=== PATIENT | female | born 1995 | race Caucasian/White ===

== ENCOUNTER 2020-02-18 00:51 | Emergency (ER) | payer MEDICAID, SELFPAY ==
[2020-02-18 01:07] VITALS: BP 125/70; PULSE 76; RESP 16; TEMP 36.9; O2SAT 98; BMI 39.4
--- NOTE | 2020-02-18 02:10 | CTR_ITS ---
PROCEDURE INFORMATION: Exam: CT Abdomen And Pelvis With Contrast Exam date and time: 02/18/2020 3:14 AM Age: 25 years old Clinical indication: Abdominal pain; Generalized; Additional info: Right abdominal pain TECHNIQUE: Imaging protocol: Computed tomography of the abdomen and pelvis with intravenous contrast. Radiation optimization: All CT scans at this facility use at least one of these dose optimization techniques: automated exposure control; mA and/or kV adjustment per patient size (includes targeted exams where dose is matched to clinical indication); or iterative reconstruction. Contrast material: OMNI 300; Contrast volume: 95 ml; Contrast route: INTRAVENOUS (IV); COMPARISON: No relevant prior studies available. RADIATION DOSE METRICS: Total DLP (mGy-cm): 1569.7 FINDINGS: Liver: Normal. No mass. Gallbladder and bile ducts: Normal. No calcified stones. No ductal dilation. Pancreas: Normal. No ductal dilation. Spleen: Normal. No splenomegaly. Adrenals: Normal. No mass. Kidneys and ureters: Normal. No hydronephrosis. Stomach and bowel: Unremarkable. No obstruction. No mucosal thickening. Appendix: The appendix is visualized and is normal in configuration. Intraperitoneal space: Trace fluid is seen in the cul-de-sac commensurate with the patient's age and menstrual status. Vasculature: Unremarkable. No abdominal aortic aneurysm. Lymph nodes: There are small mesenteric lymph nodes seen that are below CT criteria for lymphadenopathy. Mild mesenteric lymphadenitis cannot be entirely excluded. Urinary bladder: Unremarkable as visualized. Reproductive: Unremarkable as visualized. Bones/joints: Unremarkable. No acute fracture. Soft tissues: Unremarkable. CT/CT abdomen pelvis w con* [id number] IMPRESSION: 1. Normal appendix 2. Small mesenteric lymph nodes are seen that are below CT criteria for lymphadenopathy. Mild mesenteric lymphadenitis cannot be entirely excluded. 3. Trace fluid seen in the cul-de-sac commensurate the patient's age and menstrual status. Radiation Dose CTDIVOL = (mGy): DLP = 1569.7 (mGy-cm)
[2020-02-18 02:16] VITALS: BP 134/51; PULSE 66; RESP 16; O2SAT 98
[2020-02-18] MEDS: sodium chloride 0.9% 1,000 ML 999 ML IV (02:36)
[2020-02-18 02:47] LABS: Basophils # 0.1 10^3/uL (0.0-0.1); Basophils % 0.9 %; Eosinophils # 0.5 10^3/uL (0.0-0.8); Eosinophils % 5.5 %; Hematocrit 41.7 % (37.0-47.0); Hemoglobin 12.7 g/dL (11.5-15.3); Lymphocytes # 3.4 10^3/uL (0.8-4.8); Lymphocytes % 34.3 %; Mean Corpuscular HGB Conc 30.5 g/dL (30.0-36.0); Mean Corpuscular Volume 88.5 fL (81-99); Mean Platelet Volume 9.5 fL (7.4-10.4); Monocytes % 9.6 %; Neutrophils # 4.89 10^3/uL (1.8-7.7); Neutrophils % 49.4 %; Nucleated Red Blood Cells % 0 %; Platelet Count 456 10^3/cmm (130-400); Red Blood Count 4.71 10^6/uL (4.1-5.3); White Blood Count 9.9 10^3/uL (4.0-10.0)
[2020-02-18 02:49] LABS: Add Urine Microscopic? YES; Bilirubin Urine Neg (Negative); Blood Urine Neg (Negative); Glucose Urine UA Norm (Normal); Ketones Urine Negative (Negative); Leukocyte Esterase Urine Negative (Negative); Nitrate Urine Positive (Negative); Protein Urine Neg (Negative); Specific Gravity, Urine 1.015 (1.005-1.030); Urine Appearance SL Hazy (CLEAR); Urine Color Yellow (Yellow); Urobilinogen Urine Norm (Negative); pH Urine 7 (5-7)
[2020-02-18 02:54] LABS: HCG, Serum Qual Negative (Negative)
[2020-02-18 03:01] LABS: Add Urine Culture? Yes; Amorphous Sediment Urine 2+ /hpf; Bacteria Urine 3+ /hpf; RBC Urine 0-4 /hpf (0-2); Squamous Epithelial Cell Urine 0-4 /hpf (0-5); WBC Urine 0-4 /hpf (0-5)
[2020-02-18 03:10] LABS: Alanine Aminotransferase 19 U/L (0-33); Albumin Level 4.7 g/dL (3.5-5.2); Alkaline Phosphatase 98 IU/L (35-105); Anion Gap 12.8 (5-19); Aspartate Amino Transferase 16 U/L (0-32); Blood Urea Nitrogen 19 mg/dL (6-20); C Reactive Protein 6.7 mg/L (0.0-4.9); Calcium 9.8 mg/dL (8.5-10.5); Carbon Dioxide 26 mmol/L (22-29); Chloride 101 mmol/L (98-107); Globulin 2.9 g/dL (1.3-4.6); Glomerular Filtration Rate 121.8 mL/min (90-130); Glucose 91 mg/dL (65-115); Lipase 25 U/L (13-60); Osmolality Calculated 284 mOsm/kg (285-295); Potassium 3.8 mmol/L (3.5-5.1); Sodium 136 mmol/L (136-145); Total Bilirubin 0.2 mg/dL (0.15-1.2); Total Protein 7.6 g/dL (6.6-8.7)
[2020-02-18] MEDS: iohexol 300 mg/mL 100 mL Btl IV (03:15)
[2020-02-18] MEDS: ondansetron 2 mg/ML SDV 2 mL 4 MG IVP (03:41)
[2020-02-18 03:42] VITALS: RESP 16; O2SAT 98
[2020-02-18] MEDS: morphine 4 mg/mL SDV 1 mL IVP (03:42)
[2020-02-18 03:43] VITALS: BP 114/70; PULSE 80; RESP 16; O2SAT 100
--- NOTE | 2020-02-18 04:03 | ED_ITS ---
HPI - Abdominal Pain General: Chief Complaint: Abdominal Pain Stated Complaint: r side abd pain Time Seen by Provider: 02/18/20 02:08 History of Present Illness: HPI narrative: 25-year-old female with right greater than left-sided lower abdominal pain and back pain for the past couple of days. She is vomited a couple of times. She has had no fever. She has had some dysuria symptoms. She had a tubal ligation a few months ago. No other belly surgeries. No blood in the stool or vomitus. No diarrhea. MD elicited complaint: abdominal pain Pertinent past history: past UTI Onset (ago): day(s) Pain Consistency: constant Location: RLQ and Other Severity: moderate Radiation: back Migration to: no migration Associated Symptoms: Reports chills, nausea and vomiting; Denies dysuria, fever(s), hematochezia, hematuria and melena Related Data: Date of Last Menstrual Period: 01/31/20 Review of Systems Const: Reports: chills; Denies: fever(s) Eyes: Denies: change in vision ENMT: Denies: odynophagia, post nasal drip or sinus pain Card: Denies: chest pain, palpitations or irregular heart rhythm Resp: Denies: dyspnea, productive cough, non-productive cough or wheezing GI: Reports: abdominal pain, nausea and vomiting; Denies: hematochezia or melena : Denies: dysuria or hematuria Musc: Denies: neck pain or back pain Skin/Breast: Denies: rash or erythema Neuro: Denies: headache(s), dizziness or vertigo Psych: Denies: anxiety [facility] ED Female Reproductive History: Date of last menstrual period: 01/31/20 : 2 Physical Exam Const: GENERAL APPEARANCE: well developed ORIENTATION/CONSCIOUSNESS: Yes oriented to person, Yes oriented to place and Yes oriented to time HENMT: COMMON NORMALS: normocephalic, external ears normal and Normal external nose present HEAD & SCALP: normocephalic; no scalp tenderness FACE & SINUS: normal facial exam NOSE: Normal external nose present and No nasal discharge present EXTERNAL EAR: Yes external ears normal Eye: COMMON NORMALS: Equal, round and reactive pupils present, EOMs intact bilaterally and conjunctivae normal EYELID: eyelids normal CONJUNCTIVA: Yes conjunctivae normal PUPIL: Yes Equal, round and reactive pupils present Neck/C-Spine: GENERAL: No tracheal deviation Chest: COMMONS NORMALS: normal inspection of the chest CHEST: No tenderness Resp: COMMON NORMALS: clear to auscultation bilaterally EFFORT & INSPECTION: No tachypneic, No respiratory distress, No retractions, No uses accessory muscles and No tracheal deviation AUSCULTATION: clear to auscultation bilaterally, no rhonchi, no wheezes and lung sounds not diminished Cardio: COMMON NORMALS: regular rate and regular rhythm RATE: regular rate RHYTHM: regular rhythm HEART SOUNDS: no murmurs PERIPHERAL PULSES: radial pulses present GI: INSPECTION: No abdominal distension AUSCULTATION: No Hyperactive bowel sounds present and No Hypoactive bowel sounds present PALPATION: Yes Tenderness to palpation present (GI), Yes Guarding due to palpation present (GI) in the RLQ and No Rigid due to palpation PERCUSSION: no dullness to percussion and no tympanic to percussion : COMMON NORMALS: Yes no CVA tenderness BLADDER/KIDNEY EXAM: Yes no CVA tenderness Back/Pelvis: COMMON NORMALS: no CVA tenderness Neuro: SENSORIUM/ORIENTATION: Yes oriented to person, Yes oriented to place and Yes oriented to time Psych: COMMON NORMALS: mental status grossly normal Skin: COMMON NORMALS: no rashes or lesions noted GENERAL SKIN EXAM: no rashes or lesions noted Course Vital Signs: Vital signs: Vital Signs Temperature 98.4 F 02/18/20 01:07 Pulse Rate 59 L 02/18/20 04:31 Respiratory Rate 15 02/18/20 04:31 Blood Pressure 109/53 02/18/20 04:31 Pulse Oximetry 98 02/18/20 04:31 MDM - Abdominal Pain MDM Narrative: Medical decision making narrative: Patient is given pain medication, nausea medication, and fluid. Platelet count minimally elevated. White blood cell count is 9.9. Electrolytes are normal. CT shows mesenteric adenitis. Urinalysis shows bacteria without definite infection. She will be treated as a urinary tract infection, as she does have increased frequency and some dysuria. Lab Data: Labs: Lab Results 02/18/20 02/18/20 02/18/20 Range/Units 02:22 02:22 02:22 WBC 9.9 (4.0-10.0) 10^3/ uL RBC 4.71 (4.1-5.3) 10^6/u L Hgb 12.7 (11.5-15.3) g/dL Hct 41.7 (37.0-47.0) % MCV 88.5 (81-99) fL MCH 27.0 L (28.0-34.0) pg MCHC 30.5 (30.0-36.0) g/dL RDW 15.0 (12.1-15.1) % Plt Count 456 H (130-400) 10^3/c mm MPV 9.5 (7.4-10.4) fL Neut % (Auto) 49.4 % Lymph % (Auto) 34.3 % Whitman % (Auto) 9.6 % Eos % (Auto) 5.5 % Baso % (Auto) 0.9 % Neut # (Auto) 4.89 (1.8-7.7) 10^3/u L Lymph # (Auto) 3.4 (0.8-4.8) 10^3/u L Whitman # (Auto) 1.0 H (0.2-0.9) 10^3/u L Eos # (Auto) 0.5 (0.0-0.8) 10^3/u L Baso # (Auto) 0.1 (0.0-0.1) 10^3/u L Nucleated RBC % (a uto) 0 % Nucleated RBCs # 0.0 /100WBC Sodium 136 (136-145) mmol/L Potassium 3.8 (3.5-5.1) mmol/L Chloride 101 (98-107) mmol/L Carbon Dioxide 26 (22-29) mmol/L Anion Gap 12.8 (5-19) BUN 19 (6-20) mg/dL Creatinine 0.6 (0.5-0.9) mg/dL GFR Calculation 121.8 (90-130) mL/min Glucose 91 (65-115) mg/dL Calculated Osmolal ity 284 L (285-295) mOsm/k g Calcium 9.8 (8.5-10.5) mg/dL Total Bilirubin 0.2 (0.15-1.2) mg/dL AST 16 (0-32) U/L ALT 19 (0-33) U/L Alkaline Phosphata se 98 (35-105) IU/L C-Reactive Protein 6.7 H (0.0-4.9) mg/L Total Protein 7.6 (6.6-8.7) g/dL Albumin 4.7 (3.5-5.2) g/dL Globulin 2.9 (1.3-4.6) g/dL Lipase 25 (13-60) U/L HCG, Qual Negative (Negative) Urine Color (Yellow) Urine Appearance (CLEAR) Urine pH (5-7) Ur Specific Gravit y (1.005-1.030) Urine Protein (Negative) Urine Glucose (UA) (Normal) Urine Ketones (Negative) Urine Blood (Negative) Urine Nitrate (Negative) Urine Bilirubin (Negative) Urine Urobilinogen (Negative) mg/dL Ur Leukocyte Keysha ase (Negative) Urine RBC (0-2) /hpf Urine WBC (0-5) /hpf Ur Squamous Epith Cells (0-5) /hpf Amorphous Sediment /hpf Urine Bacteria (NONE) /hpf 1018/20 Range/Units 02:22 WBC (4.0-10.0) 10^3/ uL RBC (4.1-5.3) 10^6/u L Hgb (11.5-15.3) g/dL Hct (37.0-47.0) % MCV (81-99) fL MCH (28.0-34.0) pg MCHC (30.0-36.0) g/dL RDW (12.1-15.1) % Plt Count (130-400) 10^3/c mm MPV (7.4-10.4) fL Neut % (Auto) % Lymph % (Auto) % Whitman % (Auto) % Eos % (Auto) % Baso % (Auto) % Neut # (Auto) (1.8-7.7) 10^3/u L Lymph # (Auto) (0.8-4.8) 10^3/u L Whitman # (Auto) (0.2-0.9) 10^3/u L Eos # (Auto) (0.0-0.8) 10^3/u L Baso # (Auto) (0.0-0.1) 10^3/u L Nucleated RBC % (a uto) % Nucleated RBCs # /100WBC Sodium (136-145) mmol/L Potassium (3.5-5.1) mmol/L Chloride (98-107) mmol/L Carbon Dioxide (22-29) mmol/L Anion Gap (5-19) BUN (6-20) mg/dL Creatinine (0.5-0.9) mg/dL GFR Calculation (90-130) mL/min Glucose (65-115) mg/dL Calculated Osmolal ity (285-295) mOsm/k g Calcium (8.5-10.5) mg/dL Total Bilirubin (0.15-1.2) mg/dL AST (0-32) U/L ALT (0-33) U/L Alkaline Phosphata se (35-105) IU/L C-Reactive Protein (0.0-4.9) mg/L Total Protein (6.6-8.7) g/dL Albumin (3.5-5.2) g/dL Globulin (1.3-4.6) g/dL Lipase (13-60) U/L HCG, Qual (Negative) Urine Color Yellow (Yellow) Urine Appearance Sl hazy (CLEAR) Urine pH 7 (5-7) Ur Specific Gravit y 1.015 (1.005-1.030) Urine Protein Neg (Negative) Urine Glucose (UA) Norm (Normal) Urine Ketones Negative (Negative) Urine Blood Neg (Negative) Urine Nitrate Positive H (Negative) Urine Bilirubin Neg (Negative) Urine Urobilinogen Norm (Negative) mg/dL Ur Leukocyte Keysha ase Negative (Negative) Urine RBC 0-4 H (0-2) /hpf Urine WBC 0-4 H (0-5) /hpf Ur Squamous Epith Cells 0-4 H (0-5) /hpf Amorphous Sediment 2+ /hpf Urine Bacteria 3+ H (NONE) /hpf Discharge Plan Discharge Patient Disposition: Home Clinical Impression: Acute mesenteric lymphadenitis Urinary tract infection Qualifiers: Urinary tract infection type: acute cystitis Hematuria presence: without hematuria Qualified Code(s): N30.00 - Acute cystitis without hematuria Condition: Stable Prescriptions: New [place] 5-325 mg tablet 1 tab PO Q6H PRN (Reason: pain) Qty: 10 RF: 0 Zofran 4 mg tablet 4 mg PO Q6H PRN (Reason: nausea and vomiting) Qty: 10 RF: 0 levofloxacin 500 mg tablet 500 mg PO Q24H 7 Days Qty: 7 RF: 0 Discharge Orders: Discharge Order (Routine); Ordered 02/18/20 Ordered By: Doc Jain Referrals: Zuleyma Scott MD [Primary Care Provider] - 4-7 days Discharge Diet: Advance as tolerated and Clear Liquid Discharge Activity: Increase activity as tolerated Patient Instructions: Urinary Tract Infection in Women (ED), Mesenteric Adenitis (ED) Activity Restrictions/Additional Instructions: Return for fever greater than 100 despite 2-3 doses of antibiotics, vomiting liquids or medications, worsening pain despite treatment, other concerning symptoms. Discharge Date/Time: 02/18/20 04:35 Coding Level of Care Code ED [employer] Specialist for Zunilda Scales
[2020-02-18 04:17] VITALS: BP 118/67; PULSE 78; RESP 17; O2SAT 100
[2020-02-18] MEDS: levoFLOXacin 500 mg Tablet PO (04:17)
[2020-02-18 04:31] VITALS: BP 109/53; PULSE 59; RESP 15; O2SAT 98
== END 2020-02-18 04:35 | disposition home or self-care (01) ==
PROVIDERS: Emergency Provider Emergency Medicine; PCP Pediatrics
DX: N30.00 Acute cystitis without hematuria (principal); I88.0 Nonspecific mesenteric lymphadenitis
CPT/HCPCS: 12345; 74177; 80053; 81001; 83690; 84703; 85025; 86140; 87077; 87086; 87186; 96361; 96374; 96375; 99283; J2270; J2405; J7030; Q9967

== ENCOUNTER 2020-03-20 21:49 | Emergency (ER) | payer MEDICAID, SELFPAY ==
[2020-03-20 21:51] VITALS: BP 120/81; PULSE 81; RESP 17; TEMP 36.6; O2SAT 97; BMI 40.8
--- NOTE | 2020-03-20 21:58 | XR_ITS ---
WS: [id number] Exam: XR foot LT min 3V* [id number] Date/Time of Exam: 03/20/2020 10:05 PM Reason For Exam: Injury/pain Findings: The foot was examined in multiple views and reveals no fractures or displacements of bone. No bony a nomalies are noted. The bony elements are in adequate alignment. The joint spaces are smooth and eq uidistant. XR/XR foot LT min 3V* [id number] IMPRESSION: Negative left foot.
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
[2020-03-20] MEDS: lidocaine 2% viscous 15 mL UDC 5 ML TOPICAL (22:38)
[2020-03-20] MEDS: HYDROcodone-acetaminophen 5-325 mg Tablet 1 TAB PO (22:52)
--- NOTE | 2020-03-21 09:59 | DCPLANNER ---
[employer] had message to schedule a follow up appointment for patient with ortho. [employer] called the ortho clinic, spoke Hannah, gave clinic patients information. [employer] was told that patients information would be printed and reviewed. Clinic will call patient with appointment information.
--- NOTE | 2020-03-22 10:07 | DCPLANNER ---
Patient has a follow up appointment scheduled for Wednesday, March 22, 2020 at 3:[address] Schaffer. Clinic will call patient with appointment information.
--- NOTE | 2020-03-22 10:09 | DCPLANNER ---
Patient has a follow up appointment scheduled for Wednesday, March 22, 2020 at 3:[address] Schaffer. Clinic will call patient with appointment information.
--- NOTE | 2020-04-03 13:27 | DCPLANNER ---
Patient had a follow up appointment scheduled for 03.22.20 with ortho - patient did attend appointment.
== END 2020-03-20 23:03 | disposition home or self-care (01) ==
PROVIDERS: Emergency Provider Nurse Practitioner Family; PCP Pediatrics
DX: S92.415A Nondisplaced fracture of proximal phalanx of left great toe, initial encounter for closed fracture (principal); S91.209A Unspecified open wound of unspecified toe(s) with damage to nail, initial encounter; W50.0XXA Accidental hit or strike by another person, initial encounter
CPT/HCPCS: 12345; 73630; 99281; 99283; E0114

== ENCOUNTER 2020-05-04 07:02 | Emergency (ER) | payer MEDICAID, SELFPAY ==
[2020-05-04 07:12] VITALS: BP 139/69; PULSE 86; RESP 18; TEMP 36.2; O2SAT 96; BMI 40.8
--- NOTE | 2020-05-04 07:21 | USR_ITS ---
PROCEDURE INFORMATION: Exam: US Abdomen, Limited; Right Upper Quadrant Exam date and time: 05/04/2020 7:51 AM Age: 25 years old Clinical indication: Abdominal pain; Additional info: Ruq pain TECHNIQUE: Imaging protocol: US abdomen. Real time ultrasound with image documentation. Limited exam focused on the right upper quadrant. COMPARISON: CT abdomen pelvis w con* [id number] 02/18/2020 3:10 AM FINDINGS: Liver: Normal. No masses. Gallbladder: Normal. No gallstones. There is no gallbladder wall thickening. Common bile duct: Normal. No stones. No dilation. Pancreas: Limited due to bowel gas but the visualized portions are unremarkable. Right kidney: Normal. No mass. No hydronephrosis. Aorta: There is no abdominal aortic aneurysm.. Other findings: The examination is limited due to bowel gas. US/US gall bladder [id number] IMPRESSION: Limited study due to bowel gas but no abnormalities are seen.
--- NOTE | 2020-05-04 07:21 | ED_ITS ---
HPI - Back Pain/Injury General: Chief Complaint: Back Pain/Injury Stated Complaint: R SIDE BACK PAIN Time Seen by Provider: 05/04/20 07:05 Source: patient Mode of arrival: ambulatory Limitations: no limitations History of Present Illness: HPI Narrative: 25 year old female presents to the ED with c/o rt upper back and rt upper abdominal pain - onset at 5:30 am today. Reports previous symptoms approx 1 week ago but symptoms resolved - states ate fudge bar at 1 am this morning. Reports tubal ligation approx 6 months ago - LMP 2 months ago. MD elicited complaint: back pain Pertinent past history: other (pyleonephritis) Onset (ago): hour(s) (2-3) Timing: constant Severity: moderate Similar Symptoms Previously: Yes Quality: sharp, stabbing and aching Location: right upper back (rt upper abdomen) Radiation: abdomen (rt) Exacerbating factors: deep breaths and other (lying flat) Relieving factors: supine and other (sitting up) Context: other (onset while awake) Associated symptoms: Reports abdominal pain and nausea; Deny chills, dysuria, fatigue, fever(s) or vomiting Treatments prior to arrival: other (none) Work related injury: No Review of Systems General: Reports: 10 or more systems reviewed and unremarkable except in HPI and below Const: Denies: fever(s), chills, body aches, fatigue, malaise or diaphoresis Eyes: Denies: blurry vision or eye redness ENMT: Denies: throat pain, dental pain or disequilibrium Card: Denies: chest pain, palpitations or irregular heart rhythm Resp: Denies: dyspnea, productive cough, non-productive cough, wheezing or chest congestion GI: Reports: abdominal pain and nausea; Denies: vomiting, heartburn, diarrhea or GI cramping : Denies: difficulty voiding or dysuria Musc: Denies: neck pain or back pain Skin/Breast: Denies: rash or pruritus Neuro: Denies: headache(s), weakness in extremities or behavioral changes Psych: Denies: anxiety or depression Gaetano/Lymph: Denies: easy bruising PFSH ED PFSH: Medical History (Updated 05/04/20 @ 09:28 by BLAKE Becker) No pertinent past medical history Surgical History (Updated 05/04/20 @ 07:35 by BLAKE Becker) Tubal ligation status Social History Smoking and tobacco status: never smoked Second hand smoke exposure: No Alcohol intake: current Alcohol intake frequency: holidays/special occasions only Female Reproductive History: Date of last menstrual period: 01/31/20 Physical Exam Const: COMMON NORMALS: no acute distress, patient oriented x3, healthy appearing, alert and well nourished EXAM LIMITATIONS: no altered mental stat us and no physical limitations GENERAL APPEARANCE: cooperative, well kempt and well hydrated; not comfortable, not anxious and not ill appearing NUTRITIONAL APPEARANCE: obese ORIENTATION/CONSCIOUSNESS: Yes awake, Yes oriented to person, Yes oriented to place and Yes oriented to time HENMT: COMMON NORMALS: normocephalic, atraumatic, Normal external nose present and moist oral mucous membranes HEAD & SCALP: normal to inspection, normocephalic and atraumatic FACE & SINUS: normal facial exam and face symmetric NOSE: Normal external nose present and No nasal polyps present T HROAT: posterior oropharynx normal Eye: COMMON NORMALS: Equal, round and reactive pupils present, EOMs intact bilaterally and conjunctivae normal GENERAL EYE: appearance normal, both eyes and all related structures CONJUNCTIVA: Yes conjunctivae normal PUPIL: Yes Equal, round and reactive pupils present Neck/C-Spine: COMMON NORMALS: full ROM and no lymphadenopathy GENERAL: Yes normal visual inspection and Yes trachea midline CERVICAL SPINE: Yes cervical ROM normal Lymph: LYMPHATIC: no lymphadenopathy noted Chest: COMMONS NORMALS: normal inspection of the chest and normal palpation of entire chest wall Resp: COMMON NORMALS: normal respiratory effort, No retractions, No use of accessory muscles and clear to auscultation bilaterally EFFORT & INSPECTION: Yes able to speak in complete sentences AUSCULTATION: clear to auscultation bilaterally Cardio: COMMON NORMALS: regular rate, regular rhythm, S1 normal heart sound present, S2 normal heart sound present and Peripheral pulses 2+ throughout RATE: regular rate RHYTHM: regular rhythm HEART SOUNDS: S1 normal heart sound present and S2 normal heart sound present PERIPHERAL PULSES: Peripheral pulses 2+ throughout GI: COMMON NORMALS: Normal to inspection, nondistended, normoactive bowel sounds present and Soft to palpation INSPECTION: Yes normal to inspection, No abdominal wall ecchymosis, No Anasarca, No abdominal distension, Yes central obesity and Yes striae AUSCULTATION: Yes normoactive bowel sounds PALPATION: Yes Soft to palpation and Yes Tenderness to palpation present (GI) Details: RUQ (+ Chairez's) : COMMON NORMALS: Yes no CVA tenderness BLADDER/KIDNEY EXAM: Yes no CVA tenderness Back/Pelvis: COMMON NORMALS: no CVA tenderness, thoracic and lumbar spine normal to inspection, no thoracic nor lumbar tenderness, thoraco-lumbar ROM normal and straight leg raise negative bilaterally Extremity: COMMON NORMALS: normal to inspection and capillary refill normal Neuro: COMMON NORMALS: patient oriented x3 and no focal motor deficits SENSORIUM/ORIENTATION: Yes alert, Yes oriented to person, Yes oriented to place and Yes oriented to time Psych: COMMON NORMALS: mental status grossly normal, Normal thought process present and cooperative APPEARANCE: Yes well kempt ACTIVITY/MOTOR BEHAVIOR: Yes appropriate eye contact THOUGHT PROCESS: Normal thought process present Skin: COMMON NORMALS: no rashes or lesions noted and turgor normal GENERAL SKIN EXAM: no rashes or lesions noted and turgor normal Course Vital Signs: Vital signs: Vital Signs Temperature 97.2 F L 05/04/20 07:12 Pulse Rate 76 05/04/20 10:05 Respiratory Rate 18 05/04/20 10:05 Blood Pressure 117/81 05/04/20 10:05 Pulse Oximetry 97 05/04/20 10:05 MDM - Back Pain/Injury MDM Narrative: Medical decision making narrative: Well's Criteria score - 0/0. 25-year-old female patient presents to the emergency department with acute onset of right scapular pain and right upper quadrant pain. Abdominal exam revealed right upper quadrant, positive Chairez with reproduction of pain to the right scapula. Remainder of her abdomen was tender with palpation. Right upper quadrant ultrasound gallbladder without acute abnormalities. CT scan of the abdomen with normal findings -treated with IV Tylenol, Mylanta and 25 mcg of fentanyl. Pain was improved patient states she did feel better. Serology findings without acute abnormality, white blood count 8.6 thousand, normal hemoglobin hematocrit, chemistry and lipase unremarkable, hCG negative, urinalysis without acute findings. 30 mg of IV Toradol administered here in the ED, patient was able to tolerate oral fluids without difficulty. Will be treated for gastritis, advised clear liquid diet then to advance as tolerated. Verbalized understanding. Agrees to follow-up with your primary care provider next week, advised also to return to the emergency department for worsening symptoms, verbalized understanding. Differential Diagnosis: Differential diagnosis back pain/injury: Likely sciatica, strain of lumbar region and pyelonephritis Lab Data: Labs: Lab Results 05/04/20 05/04/20 05/04/20 Range/Units 07:36 07:36 07:36 WBC 8.6 (4.0-10.0) 10^3/ uL RBC 4.77 (4.1-5.3) 10^6/u L Hgb 12.9 (11.5-15.3) g/dL Hct 41.5 (37.0-47.0) % MCV 87.0 (81-99) fL MCH 27.0 L (28.0-34.0) pg MCHC 31.1 (30.0-36.0) g/dL RDW 14.7 (12.1-15.1) % Plt Count 384 (130-400) 10^3/c mm MPV 9.2 (7.4-10.4) fL Neut % (Auto) 57.2 % Lymph % (Auto) 27.4 % [place] % (Auto) 9.2 % Eos % (Auto) 5.2 % Baso % (Auto) 0.8 % Neut # (Auto) 4.93 (1.8-7.7) 10^3/u L Lymph # (Auto) 2.4 (0.8-4.8) 10^3/u L [place] # (Auto) 0.8 (0.2-0.9) 10^3/u L Eos # (Auto) 0.5 (0.0-0.8) 10^3/u L Baso # (Auto) 0.1 (0.0-0.1) 10^3/u L Nucleated RBC % (a uto) 0 % Nucleated RBCs # 0.0 /100WBC Sodium 136 (136-145) mmol/L Potassium 4.0 (3.5-5.1) mmol/L Chloride 103 (98-107) mmol/L Carbon Dioxide 23 (22-29) mmol/L Anion Gap 14.0 (5-19) BUN 16 (6-20) mg/dL Creatinine 0.6 (0.5-0.9) mg/dL GFR Calculation 121.8 (90-130) mL/min Glucose 100 (65-115) mg/dL Calculated Osmolal ity 283 L (285-295) mOsm/k g Calcium 9.3 (8.5-10.5) mg/dL Total Bilirubin 0.2 (0.15-1.2) mg/dL AST 12 (0-32) U/L ALT 16 (0-33) U/L Alkaline Phosphata se 106 H (35-105) IU/L Total Protein 7.4 (6.6-8.7) g/dL Albumin 4.3 (3.5-5.2) g/dL Globulin 3.1 (1.3-4.6) g/dL Lipase 29 (13-60) U/L HCG, Qual Negative (Negative) Urine Color (Yellow) Urine Appearance (CLEAR) Urine pH (5-7) Ur Specific Gravit y (1.005-1.030) Urine Protein (Negative) Urine Glucose (UA) (Normal) Urine Ketones (Negative) Urine Blood (Negative) Urine Nitrate (Negative) Urine Bilirubin (Negative) Urine Urobilinogen (Negative) mg/dL Ur Leukocyte Keysha ase (Negative) 05/04/20 Range/Units 07:50 WBC (4.0-10.0) 10^3/ uL RBC (4.1-5.3) 10^6/u L Hgb (11.5-15.3) g/dL Hct (37.0-47.0) % MCV (81-99) fL MCH (28.0-34.0) pg MCHC (30.0-36.0) g/dL RDW (12.1-15.1) % Plt Count (130-400) 10^3/c mm MPV (7.4-10.4) fL Neut % (Auto) % Lymph % (Auto) % [place] % (Auto) % Eos % (Auto) % Baso % (Auto) % Neut # (Auto) (1.8-7.7) 10^3/u L Lymph # (Auto) (0.8-4.8) 10^3/u L [place] # (Auto) (0.2-0.9) 10^3/u L Eos # (Auto) (0.0-0.8) 10^3/u L Baso # (Auto) (0.0-0.1) 10^3/u L Nucleated RBC % (a uto) % Nucleated RBCs # /100WBC Sodium (136-145) mmol/L Potassium (3.5-5.1) mmol/L Chloride (98-107) mmol/L Carbon Dioxide (22-29) mmol/L Anion Gap (5-19) BUN (6-20) mg/dL Creatinine (0.5-0.9) mg/dL GFR Calculation (90-130) mL/min Glucose (65-115) mg/dL Calculated Osmolal ity (285-295) mOsm/k g Calcium (8.5-10.5) mg/dL Total Bilirubin (0.15-1.2) mg/dL AST (0-32) U/L ALT (0-33) U/L Alkaline Phosphata se (35-105) IU/L Total Protein (6.6-8.7) g/dL Albumin (3.5-5.2) g/dL Globulin (1.3-4.6) g/dL Lipase (13-60) U/L HCG, Qual (Negative) Urine Color Yellow (Yellow) Urine Appearance Clear (CLEAR) Urine pH 5 (5-7) Ur Specific Gravit y 1.020 (1.005-1.030) Urine Protein Neg (Negative) Urine Glucose (UA) Norm (Normal) Urine Ketones Negative (Negative) Urine Blood Neg (Negative) Urine Nitrate Negative (Negative) Urine Bilirubin Neg (Negative) Urine Urobilinogen Norm (Negative) mg/dL Ur Leukocyte Keysha ase Negative (Negative) Imaging Data^: CT Abd/Pel: Radiologist's impression: [address] [address] [address] Scan Report Signed Patient: Ivonne Colindres Unit #: [id number] : 1995 Age/Sex: 25 / F ADM Date: 05/04/20 Loc: ER Room/Bed: Attending Dr: Ordering Provider/Ordering MD: Mervat Chavez Date of Service: 05/04/20 Procedure(s): CT abdomen pelvis w con* [id number] Accession Number(s): [id number] Report Number: [id number] PROCEDURE INFORMATION: Exam: CT Abdomen And Pelvis With Contrast Exam date and time: 05/04/2020 8:32 AM Age: 25 years old Clinical indication: Abdominal pain TECHNIQUE: Imaging protocol: Computed tomography of the abdomen and pelvis with intravenous contrast. Radiation optimization: All CT scans at this facility use at least one of these dose optimization techniques: automated exposure control; mA and/or kV adjustment per patient size (includes targeted exams where dose is matched to clinical indication); or iterative reconstruction. Contrast material: OMNI 300; Contrast volume: 95 ml; Contrast route: INTRAVENOUS (IV); COMPARISON: CT abdomen pelvis w con* [id number] 02/18/2020 3:10 AM RADIATION DOSE METRICS: Total DLP (mGy-cm): 1674.15 FINDINGS: Liver: Normal. No mass. Gallbladder and bile ducts: Normal. No calcified stones. No ductal dilation. Pancreas: Normal. No ductal dilation. Spleen: Normal. No splenomegaly. Adrenal glands: Normal. No mass. Kidneys and ureters: Normal. No hydronephrosis. Stomach and bowel: Unremarkable. No obstruction. No mucosal thickening. Appendix: No evidence of appendicitis. Intraperitoneal space: There is a small amount of nonspecific free fluid in the pelvic cul-de-sac. Vasculature: Unremarkable. No abdominal aortic aneurysm. Lymph nodes: Unremarkable. No enlarged lymph nodes. Urinary bladder: Unremarkable as visualized. Reproductive: Unremarkable as visualized. Bones/joints: Unremarkable. No acute fracture. Soft tissues: Small fat containing umbilical hernia. CT/CT abdomen pelvis w con* [id number] IMPRESSION: No significant abnormalities are seen in the abdomen and pelvis. Radiation Dose CTDIVOL = (mGy): DLP = 1674.15 (mGy-cm) Dictated By: Yasmany Arndt Signed By: Yasmany Arndt Signed Date/Time: 05/04/20905 DD/ 3 Discharge Plan Discharge Patient Disposition: Home Clinical Impression: Gastritis Qualifiers: Gastritis type: unspecified gastritis Chronicity: acute Gastritis bleeding: without bleeding Qualified Code(s): K29.00 - Acute gastritis without bleeding Abdominal pain Qualifiers: Abdominal location: generalized Qualified Code(s): R10.84 - Generalized abdominal pain Condition: Stable Prescriptions: New Zofran 4 mg tablet 4 mg PO Q4H 5 Days Qty: 14 RF: 0 Pepcid 20 mg tablet 20 mg PO BID Qty: 20 RF: 0 No Action acetaminophen-codeine 300-30 mg tablet 1 tab PO Q6H PRN (Reason: pain) Qty: 20 RF: 0 IBU 800 mg tablet 800 mg PO TID PRN (Reason: pain) Qty: 30 RF: 0 [place] 5-325 mg tablet 1 tab PO Q6H PRN (Reason: pain) Qty: 10 RF: 0 Zofran 4 mg tablet 4 mg PO Q6H PRN (Reason: nausea and vomiting) Qty: 10 RF: 0 Discharge Orders: Discharge ED (Routine); Ordered 05/04/20 Ordered By: Mervat Chavez Referrals: Zuleyma Scott MD [Primary Care Provider] - Discharge Diet: Advance as tolerated and Clear Liquid Discharge Activity: Limit activity as instructed Patient Instructions: Gastritis (ED), Abdominal Pain (ED) Activity Restrictions/Additional Instructions: Clear liquid diet, advance as tolerated, avoid fried greasy fatty spicy foods until improved. Follow-up with your primary care provider next week if abdominal pain remains, return to the emergency department if you develop worsening symptoms such as fever, vomiting despite use of Zofran or increased back pain. May take Tylenol as needed for pain. Drink lots of fluids. Coding Level of Care Code ED Clinical Research Tech for [facility]unilda Fwd Exam Comprehensive
[2020-05-04] MEDS: ondansetron 2 mg/ML SDV 2 mL 4 MG IVP (07:47)
[2020-05-04 07:48] LABS: Basophils # 0.1 10^3/uL (0.0-0.1); Basophils % 0.8 %; Eosinophils # 0.5 10^3/uL (0.0-0.8); Eosinophils % 5.2 %; Hematocrit 41.5 % (37.0-47.0); Hemoglobin 12.9 g/dL (11.5-15.3); Lymphocytes # 2.4 10^3/uL (0.8-4.8); Lymphocytes % 27.4 %; Mean Corpuscular HGB Conc 31.1 g/dL (30.0-36.0); Mean Platelet Volume 9.2 fL (7.4-10.4); Monocytes # 0.8 10^3/uL (0.2-0.9); Monocytes % 9.2 %; Neutrophils # 4.93 10^3/uL (1.8-7.7); Neutrophils % 57.2 %; Nucleated Red Blood Cells % 0 %; Platelet Count 384 10^3/cmm (130-400); Red Blood Count 4.77 10^6/uL (4.1-5.3); Red Cell Distribution Width 14.7 % (12.1-15.1); White Blood Count 8.6 10^3/uL (4.0-10.0)
[2020-05-04 07:56] LABS: Add Urine Microscopic? NO
[2020-05-04 07:57] LABS: HCG, Serum Qual Negative (Negative)
[2020-05-04 07:59] LABS: Bilirubin Urine Neg (Negative); Blood Urine Neg (Negative); Glucose Urine UA Norm (Normal); Ketones Urine Negative (Negative); Leukocyte Esterase Urine Negative (Negative); Nitrate Urine Negative (Negative); Protein Urine Neg (Negative); Urine Appearance Clear (CLEAR); Urine Color Yellow (Yellow); Urobilinogen Urine Norm (Negative); pH Urine 5 (5-7)
[2020-05-04 08:14] LABS: Alanine Aminotransferase 16 U/L (0-33); Albumin Level 4.3 g/dL (3.5-5.2); Alkaline Phosphatase 106 IU/L (35-105); Aspartate Amino Transferase 12 U/L (0-32); Blood Urea Nitrogen 16 mg/dL (6-20); Calcium 9.3 mg/dL (8.5-10.5); Carbon Dioxide 23 mmol/L (22-29); Chloride 103 mmol/L (98-107); Globulin 3.1 g/dL (1.3-4.6); Glomerular Filtration Rate 121.8 mL/min (90-130); Glucose 100 mg/dL (65-115); Lipase 29 U/L (13-60); Osmolality Calculated 283 mOsm/kg (285-295); Sodium 136 mmol/L (136-145); Total Bilirubin 0.2 mg/dL (0.15-1.2); Total Protein 7.4 g/dL (6.6-8.7)
--- NOTE | 2020-05-04 08:29 | CTR_ITS ---
PROCEDURE INFORMATION: Exam: CT Abdomen And Pelvis With Contrast Exam date and time: 05/04/2020 8:32 AM Age: 25 years old Clinical indication: Abdominal pain TECHNIQUE: Imaging protocol: Computed tomography of the abdomen and pelvis with intravenous contrast. Radiation optimization: All CT scans at this facility use at least one of these dose optimization techniques: automated exposure control; mA and/or kV adjustment per patient size (includes targeted exams where dose is matched to clinical indication); or iterative reconstruction. Contrast material: OMNI 300; Contrast volume: 95 ml; Contrast route: INTRAVENOUS (IV); COMPARISON: CT abdomen pelvis w con* [id number] 02/18/2020 3:10 AM RADIATION DOSE METRICS: Total DLP (mGy-cm): 1674.15 FINDINGS: Liver: Normal. No mass. Gallbladder and bile ducts: Normal. No calcified stones. No ductal dilation. Pancreas: Normal. No ductal dilation. Spleen: Normal. No splenomegaly. Adrenal glands: Normal. No mass. Kidneys and ureters: Normal. No hydronephrosis. Stomach and bowel: Unremarkable. No obstruction. No mucosal thickening. Appendix: No evidence of appendicitis. Intraperitoneal space: There is a small amount of nonspecific free fluid in the pelvic cul-de-sac. Vasculature: Unremarkable. No abdominal aortic aneurysm. Lymph nodes: Unremarkable. No enlarged lymph nodes. Urinary bladder: Unremarkable as visualized. Reproductive: Unremarkable as visualized. Bones/joints: Unremarkable. No acute fracture. Soft tissues: Small fat containing umbilical hernia. CT/CT abdomen pelvis w con* [id number] IMPRESSION: No significant abnormalities are seen in the abdomen and pelvis. Radiation Dose CTDIVOL = (mGy): DLP = 1674.15 (mGy-cm)
[2020-05-04 08:34] VITALS: RESP 18; O2SAT 99
[2020-05-04] MEDS: fentaNYL 50 mcg/mL INJ 2mL 25 MCG IVP (08:34)
[2020-05-04] MEDS: alum-mag-hydroxide-sime 30 mL UDC PO (08:35)
[2020-05-04] MEDS: iohexol 300 mg/mL 100 mL Btl IV (08:44)
[2020-05-04 09:44] VITALS: BP 114/87; PULSE 73; RESP 18; O2SAT 98
[2020-05-04] MEDS: ketorolac 30 mg/mL INJ IVP (09:44)
[2020-05-04 10:05] VITALS: BP 117/81; PULSE 76; RESP 18; O2SAT 97
== END 2020-05-04 10:02 | disposition home or self-care (01) ==
PROVIDERS: Emergency Provider Nurse Practitioner Family; PCP Pediatrics
DX: K29.00 Acute gastritis without bleeding (principal)
CPT/HCPCS: 12345; 74177; 76705; 80053; 81003; 83690; 84703; 85025; 96374; 96375; 99282; 99283; J0131; J1885; J2405; J3010; Q9967